=== PATIENT | female | born 1955 | race American Indian/Alaskan Native ===

== ENCOUNTER 2017-06-21 14:14 | Outpatient (CLI) | payer MEDICAID ==
--- NOTE | 2017-06-21 16:41 | Mammography Report ---
BONE DEXA:06/21/17 14:14:00 CLINICAL: Postmenopausal.History of breast cancer and on aromatase inhibitor. TECHNIQUE: Two site bone DEXA performed on an Hologic scanner. FINDINGS: The average BMD of the lumbar spine L1-L4 is 1.062g/cm squared with a T-score of -0.8 and a Z-score of +0.9. The average BMD of the left hip is 1.159g/cm squared with a T-score of +0.8 and a Z-score of +1.7. IMPRESSION: WHO classification: Normal with average fracture risk based on both spine and left hip measurements. RECOMMENDATION: Clinical correlation and routine screening. DEFINITIONS: BMD = Bone Mineral Density T-score = BMD related to mean peak bone mass of young adult (mean expressed in Standard Deviation) Z-score = Age matched BMD expressed in SD World Health Organization (WHO) Diagnostic Criteria Normal T-score > -1 SD Osteopenia T-score between -1 and -2.4 SD Osteoporosis T-score -2.5 SD or below NOTE: BMD is not the only risk factor for fracture. One should also consider factors such as the patient's age, risk of falling, previous osteoporotic fracture, family history of osteoporotic fractures, current smoker, and low body weight. Z-scores are not calculated if >80 years of age.
--- NOTE | 2017-06-22 13:09 | Mammography Report ---
BILATERAL DIGITAL SCREENING MAMMOGRAM WITH CAD: 06/21/17 14:14:00 CLINICAL: Routine screening.Breast cancer survivor status post right partial mastectomy and radiation therapy in January 2016.. COMPARISON:06/09/16 right mammogram. FINDINGS: The breasts are predominantly fatty with scattered fibroglandular densities in the right breast is less dense than on the prior exam. Stable right outer postsurgical scar with surgical clips. No mass, architectural distortion or suspicious calcifications. IMPRESSION: No mammographic evidence of malignancy. BI-RADS CATEGORY: 2 -- Benign RECOMMENDATION: Routine mammographic screening in one year. COMMENT: Patient follow-up letters are generated via our [employer] application.
== END 2017-06-21 14:15 | disposition home or self-care (01) ==
LOC: SPVWC 14:14
PROVIDERS: ATTEND Internal Medicine Hematology & Oncology
DX: Z12.31 Encounter for screening mammogram for malignant neoplasm of breast (principal); M67.431 Ganglion, right wrist; Z79.899 Other long term (current) drug therapy; Z79.811 Long term (current) use of aromatase inhibitors; Z90.11 Acquired absence of right breast and nipple; Z85.3 Personal history of malignant neoplasm of breast; Z78.0 Asymptomatic menopausal state
CPT/HCPCS: 77080; G0202; 77067

== ENCOUNTER 2018-06-26 13:55 | Outpatient (CLI) | payer MEDICAID ==
--- NOTE | 2018-06-27 13:32 | Mammography Report ---
BILATERAL DIGITAL SCREENING MAMMOGRAM WITH CAD: 06/26/18 13:55:00 CLINICAL: Routine screening.Breast cancer survivor status post right partial mastectomy and radiation therapy. COMPARISON:06/21/17 FINDINGS: There are bilateral scattered fibroglandular densities. The right breast is smaller than the left with stable upper outer postsurgical scar with surgical clips. Stable mild skin thickening of the right breast. No mass, architectural distortion or suspicious calcifications. IMPRESSION: No mammographic evidence of malignancy. BI-RADS CATEGORY: 2 -- Benign RECOMMENDATION: Routine mammographic screening in one year. COMMENT: Patient follow-up letters are generated via our [employer] application.
== END 2018-06-26 13:56 | disposition home or self-care (01) ==
LOC: SPVWC 13:55
PROVIDERS: ATTEND Internal Medicine Hematology & Oncology
DX: Z12.31 Encounter for screening mammogram for malignant neoplasm of breast (principal)
CPT/HCPCS: 77067

== ENCOUNTER 2018-07-01 10:21 | Emergency (ER) | payer MEDICAID ==
[2018-07-01 10:44] VITALS: BP 153/74
[2018-07-01 11:30] LABS: Bilirubin,Urine NEG (Negative); Blood,Urine NEG (Negative); Color,Urine Yellow (Yellow); Mucus,Urine FEW /HPF; Protein,Urine <15 mg/dL mg/dL (Negative)
--- NOTE | 2018-07-01 11:55 | Emergency Department Report ---
ED General Adult HPI - General Chief complaint: Urogenital-Female Stated complaint: POSS UTI Time Seen by Provider: 07/01/18 11:27 Source: patient Mode of arrival: Ambulatory Limitations: No Limitations - History of Present Illness Initial comments: Patient is a 63-year-old female with past medical history hypertension who is complaining of 2 weeks of urinary frequency. Patient states there is no dysuria or abnormal vaginal bleeding she states that she just hard time "" holding her urine". Patient also states that she has had some change in her diet and her blood pressure medicines haven't been changed recently and her blood pressure is elevated. Patient's Norvasc dose was dropped to 5 mg from 10 mg. This occurred also about 2 weeks ago and patient states that she says some lower extremity edema. Patient denies any shortness of breath chest pain fevers chills nausea vomiting at this time. - Related Data Previous Rx's Medication Instructions Recorded Last Taken Type Doxycycline [Vibramycin CAP] 100 mg PO Q12HR #14 capsule 07/01/18 Unknown Rx Phenazopyridine [Pyridium] 100 mg PO TID 2 Days tab 07/01/18 Unknown Rx hydroCHLOROthiazide 12.5 mg PO BID #30 tablet 07/01/18 Unknown Rx [Hydrochlorothiazide] Allergies Allergy/AdvReac Type Severity Reaction Status Date / Time aspirin AdvReac Nausea Verified 07/01/18 10:44 ibuprofen AdvReac Nausea Verified 07/01/18 10:44 ED Review of Systems ROS: Stated complaint: POSS UTI Other details as noted in HPI Comment: All other systems reviewed and negative ED Past Medical Hx - Past Medical History Previous Medical History?: Yes Hx Hypertension: Yes Hx of Cancer: Yes Additional medical history: Breast CA - Surgical History Past Surgical History?: Yes Additional Surgical History: Lumpectomy - Social History Smoking Status: Never Smoker Substance Use Type: None - Medications Home Medications: Home Medications Medication Instructions Recorded Confirmed Last Taken Type Doxycycline [Vibramycin CAP] 100 mg PO Q12HR #14 capsule 07/01/18 Unknown Rx Phenazopyridine [Pyridium] 100 mg PO TID 2 Days tab 07/01/18 Unknown Rx hydroCHLOROthiazide 12.5 mg PO BID #30 tablet 07/01/18 Unknown Rx [Hydrochlorothiazide] ED Physical Exam - General Limitations: No Limitations General appearance: alert, in no apparent distress - Head Head exam: Present: atraumatic, normocephalic - Eye Eye exam: Present: normal appearance - ENT ENT exam: Present: mucous membranes moist - Neck Neck exam: Present: normal inspection - Respiratory Respiratory exam: Present: normal lung sounds bilaterally. Absent: respiratory distress, wheezes, rales, rhonchi - Cardiovascular Cardiovascular Exam: Present: regular rate, normal rhythm, systolic murmur (2/6) . Absent: diastolic murmur, rubs, gallop - GI/Abdominal GI/Abdominal exam: Present: soft, normal bowel sounds. Absent: distended, tenderness, guarding, rebound - Extremities Exam Extremities exam: Present: normal inspection, other (1+ pedal edema) - Back Exam Back exam: Present: normal inspection - Neurological Exam Neurological exam: Present: alert, oriented X3 - Psychiatric Psychiatric exam: Present: normal affect, normal mood - Skin Skin exam: Present: warm, dry, intact, normal color. Absent: rash ED Course Vital Signs 07/01/18 10:41 Temperature 98.4 F Pulse Rate 60 Respiratory 16 Rate Blood Pressure 153/74 O2 Sat by Pulse 97 Oximetry ED Medical Decision Making - Lab Data Labs 07/01/18 11:05 Urine Color Yellow Urine Turbidity Clear Urine pH 6.0 Ur Specific [place] 1.015 Urine Protein <15 mg/dl Urine Glucose (UA) Neg Urine Ketones Neg Urine Blood Neg Urine Nitrite Neg Urine Bilirubin Neg Urine Urobilinogen 2.0 Ur Leukocyte Esterase Neg Urine WBC (Auto) 1.0 Urine RBC (Auto) 1.0 Urine Mucus Few - Medical Decision Making Patient does not have a urinary tract infection glucose is normal ketones normal in her urine. Patient could still have interstitial cystitis and urine cultures been sent the patient be started on doxycycline. Patient does have a blood pressure 153/74 which patient states is abnormal for her. Patient does have some mild fluid retention. Educated patient on a low-sodium diet. Patient also be started on hydrochlorothiazide to help with her blood pressure and fluid retention. Patient be discharged home to follow up with her primary care. Critical care attestation.: If time is entered above; I have spent that time in minutes in the direct care of this critically ill patient, excluding procedure time. ED Disposition Clinical Impression: Dependent edema, Hypertensive urgency, Interstitial cystitis Disposition: DC- TO HOME OR SELFCARE Is pt being admited?: No Does the pt Need Aspirin: No Condition: Stable Instructions: Hypertension (ED) Additional Instructions: Please follow-up with your primary care physician regarding her blood pressure Time of Disposition: 11:57
== END 2018-07-01 12:03 | disposition home or self-care (01) ==
LOC: ED 10:21
DX: N30.10 Interstitial cystitis (chronic) without hematuria (principal); R60.9 Edema, unspecified; I16.0 Hypertensive urgency; I10 Essential (primary) hypertension; Z90.89 Acquired absence of other organs; Z85.3 Personal history of malignant neoplasm of breast; Z88.6 Allergy status to analgesic agent
CPT/HCPCS: 81001; 99283

== ENCOUNTER 2019-07-02 10:01 | Outpatient (CLI) | payer MEDICAID ==
--- NOTE | 2019-07-03 09:09 | Mammography Report ---
BILATERAL DIGITAL SCREENING MAMMOGRAM WITH CAD INDICATION: Routine screening mammography. Breast cancer survivor status post right partial mastectom y and radiation therapy. TECHNIQUE: Digital bilateral 2D mammography was obtained in the craniocaudal and mediolateral obliq ue projections. This examination was interpreted with the benefit of Computer-Aided Detection analysi s. COMPARISON: 06/26/2018 FINDINGS: Breast Density: There are scattered areas of fibroglandular density. No mass, architectural distortion or suspicious calcifications. The right breast is smaller than the left. Stable right outer postsurgical scar with surgical clips. IMPRESSION:No mammographic evidence of malignancy. BI-RADS Category 2: Benign. No mammographic evidence of malignancy. Recommend routine screening ma mmography in one year. A "normal" or negative report should not discourage follow up or biopsy of a clinically significant f inding. A written summary of these findings will be mailed to the patient. The patient will be entered into a mammography reporting system which will generate a reminder letter for the patient's next appointmen t at the appropriate interval. The [employer] recommends yearly mammograms starting at age 40 and continuing as l sophie as a woman is in good health. Breast MRI is recommended for women with an approximate 20-25% or greater lifetime risk of breast cancer, including women with a strong family history of breast or ova stevie cancer or who have been treated for Hodgkin's disease. Signer Name: Sumit Horowitz MD Signed: 07/03/2019 9:05 AM Workstation Name: [id number]
== END 2019-07-02 10:02 | disposition home or self-care (01) ==
LOC: SPVWC 10:01
PROVIDERS: ATTEND Internal Medicine Hematology & Oncology
DX: Z12.31 Encounter for screening mammogram for malignant neoplasm of breast (principal); I10 Essential (primary) hypertension
CPT/HCPCS: 77067

== ENCOUNTER 2019-12-18 13:16 | Outpatient (CLI) | payer MEDICAID ==
--- NOTE | 2019-12-18 15:54 | Mammography Report ---
BONE DEXA CLINICAL: Postmenopausal. COMPARISON: 06/21/2017 TECHNIQUE: 2 site bone DEXA performed on an Hologic scanner. FINDINGS: The average BMD of the lumbar spine L1-L4 is 1.107g/cm squared with a T score of -0.4 and a Z score o f +1.5. This compares to 1.062g/cm squared on the last exam and represents a +4.2 % change from the p revious baseline. The average BMD of the left hip is 1.105 g/cm squared with a T score of +0.5and a Z score of +1.4. Th is compares to 1.159 g/cm squared on the last exam and represents a -4.7 % change from the previous b aseline. IMPRESSION: 1. WHO classification: Normal with average fracture risk based on spine measurements. 2. WHO classification Normal with average fracture risk based on left hip measurements. 3. A moderate improvement in spine BMD and a moderate decline in left hip BMD compared to the previou s exam. RECOMMENDATION: Clinical correlation and routine screening. Definitions: BMD equal bone mineral density T score = BMD related to peak bone mass of young adult ([place] expressed an standard deviation) Z score = age-matched BMD expressed in SD World health organization (WHO) diagnostic criteria Normal T score greater than equal to 1 standard deviation Osteopenia T score between -1 and -2.4 standard deviation Osteoporosis T score -2.5 standard deviation or below. Note: BMD is not the only risk factor for fracture; also consider factors such as the patient's age, risk of falling, previous osteoporotic fracture, family history of osteoporotic fractures, current sm oker and low body weight. Z scores are not calculated if greater than 80 years of age. Signer Name: Sumit Horowitz MD Signed: 12/18/2019 3:50 PM Workstation Name: [id number]
== END 2019-12-18 13:17 | disposition home or self-care (01) ==
LOC: SPVWC 13:16
PROVIDERS: ATTEND Internal Medicine Hematology & Oncology
DX: C50.411 Malignant neoplasm of upper-outer quadrant of right female breast (principal); M67.431 Ganglion, right wrist
CPT/HCPCS: 77080

== ENCOUNTER 2020-07-14 11:25 | Outpatient (CLI) | payer MEDICARE ==
--- NOTE | 2020-07-14 14:59 | Mammography Report ---
DIGITAL SCREENING MAMMOGRAM WITH CAD, 07/14/2020 INDICATION: Routine screening mammography. Personal history of right breast cancer treated with lumpe ctomy and radiation. TECHNIQUE: Digital bilateral 2D mammography was obtained in the craniocaudal and mediolateral obliq ue projections. This examination was interpreted with the benefit of Computer-Aided Detection analysi s. COMPARISON: 07/02/2019, 06/26/2018, 06/21/2017 FINDINGS: Breast Density: There are scattered areas of fibroglandular density. There is no evidence of dominant mass, suspicious calcifications or architectural distortion in eithe r breast. Postsurgical changes are again noted in the right breast. IMPRESSION: Follow up recommendation: Routine yearly BI-RADS Category 2: Benign. A "normal" or negative report should not discourage follow up or biopsy of a clinically significant f inding. A written summary of these findings will be mailed to the patient. The patient will be entered into a mammography reporting system which will generate a reminder letter for the patient's next appointmen t at the appropriate interval. The [employer] recommends yearly mammograms starting at age 40 and continuing as l sophie as a woman is in good health. Breast MRI is recommended for women with an approximate 20-25% or greater lifetime risk of breast cancer, including women with a strong family history of breast or ova stevie cancer or who have been treated for Hodgkin's disease. Signer Name: Najma Boogie MD Signed: 07/14/2020 2:54 PM Workstation Name: [id number]
== END 2020-07-14 11:26 | disposition home or self-care (01) ==
LOC: SPVWC 11:25
PROVIDERS: ATTEND Internal Medicine Hematology & Oncology
DX: Z12.31 Encounter for screening mammogram for malignant neoplasm of breast (principal)
CPT/HCPCS: 77067

== ENCOUNTER 2021-07-15 08:50 | Outpatient (CLI) | payer MEDICARE ==
--- NOTE | 2021-07-15 10:55 | Mammography Report ---
DIGITAL SCREENING MAMMOGRAM WITH CAD, 07/15/2021 CLINICAL INFORMATION / INDICATION: Routine screening mammography. TECHNIQUE: Digital bilateral 2D mammography was obtained in the craniocaudal and mediolateral obliqu e projections. This examination was interpreted with the benefit of Computer-Aided Detection analysis . COMPARISON: Prior mammograms 07/14/2020 and 07/02/2019 FINDINGS: Breast Density: There are scattered areas of fibroglandular density. No dominant mass, suspicious calcifications, or architectural distortion in either breast. There is stable benign postsurgical change seen in the right breast. There has been no significant ch alvaro compared with the prior examinations. IMPRESSION: No mammographic evidence of malignancy. Follow up recommendation: Routine yearly BI-RADS Category 2: Benign. A "normal" or negative report should not discourage follow up or biopsy of a clinically significant f inding. A written summary of these findings will be mailed to the patient. The patient will be entered into a mammography reporting system which will generate a reminder letter for the patient's next appointmen t at the appropriate interval. The [employer] recommends yearly mammograms starting at age 40 and continuing as l sophie as a woman is in good health. Breast MRI is recommended for women with an approximate 20-25% or greater lifetime risk of breast cancer, including women with a strong family history of breast or ova stevie cancer or who have been treated for Hodgkin's disease. Signer Name: Mireya Blanchard MD Signed: 07/15/2021 10:50 AM Workstation Name: [id number]
== END 2021-07-15 08:51 | disposition home or self-care (01) ==
LOC: SPVWC 08:50
PROVIDERS: ATTEND Internal Medicine Hematology & Oncology
DX: Z12.31 Encounter for screening mammogram for malignant neoplasm of breast (principal)
CPT/HCPCS: 77067

== ENCOUNTER 2022-07-13 12:44 | Outpatient (CLI) | payer MEDICARE ==
--- NOTE | 2022-07-13 13:59 | Mammography Report ---
DIGITAL DIAGNOSTIC MAMMOGRAM CONVENTIONAL, 07/13/2022 CLINICAL INFORMATION / INDICATION: Left breast pain since reduction surgery January 2022 TECHNIQUE: Digital bilateral mammographic imaging was performed. COMPARISON: Comparison is with prior exams dated back to 2018. FINDINGS: Breast Density: There are scattered areas of fibroglandular density. Stable postlumpectomy changes are noted in the right breast without evidence of recurrent or residual disease. Postsurgical distortion is now seen in the left breast secondary to interval left breast re duction. IMPRESSION: No mammographic evidence of malignancy. Follow up recommendation: Routine yearly mammography BI-RADS Category 2: Benign. A "normal" or negative report should not discourage follow up or biopsy of a clinically significant f inding. A written summary of these findings will be mailed to the patient. The patient will be entered into a mammography reporting system which will generate a reminder letter for the patient's next appointmen t at the appropriate interval. According to the [employer], yearly mammograms are recommended starting at age 40 and continuing as long as a woman is in good health. Breast MRI is recommended for women with an aj roximately 20-25% or greater lifetime risk of breast cancer, including women with a strong family his tory of breast or ovarian cancer and women who have been treated for Hodgkin's disease. Signer Name: Lu Finnegan MD, Ph.D Signed: 07/13/2022 1:54 PM Workstation Name: [id number]
--- NOTE | 2022-07-13 14:54 | Mammography Report ---
DEXA BONE DENSITY SCAN INDICATION / CLINICAL INFORMATION: SCREENING FOR OSTEOPOROSIS [id number]. 67 years Female COMPARISON: 12/18/2019 LUMBAR SPINE, L1-L4: - Bone mineral density (BMD) = 1.131 g/cm2. - T-score = -0.2 - Change (%) since most recent prior (if available): 2.2% increase LEFT HIP, NECK : - Bone mineral density (BMD) = 0.934 g/cm2. - T-score = -0.1 - Change (%) since most recent prior (if available): 1.7% decrease IMPRESSION: 1. WHO Classification: Normal bone density. Fracture Risk: Not Increased. Note: 10-Year Fracture Risk (FRAX) not reported. This DEXA unit lacks FRAX functionality. BMD Reporting Guidelines (ISCD, 2015) BMD Reporting in Postmenopausal Women and in Men Age 50 and Older - T-scores are preferred. - The WHO densitometric classification is applicable. BMD Reporting in Females Prior to Menopause and in Males Younger Than Age 50 - Z-scores, not T-scores, are preferred. This is particularly important in children. - A Z-score of -2.0 or lower is defined as below the expected range for age, and a Z-score above -2.0 is within the expected range for age. - Osteoporosis cannot be diagnosed in men under age 50 on the basis of BMD alone. - The WHO diagnostic criteria may be applied to women in the menopausal transition. http://www.iscd.org/official-positions/7900-kaxj-jkigynhu-positions-adult/ Signer Name: Tad Rodas MD Signed: 07/13/2022 2:50 PM Workstation Name: [id number]
== END 2022-07-13 12:45 | disposition home or self-care (01) ==
LOC: SPVWC 12:44
PROVIDERS: ATTEND Internal Medicine
DX: Z13.820 Encounter for screening for osteoporosis (principal); N64.4 Mastodynia; N95.9 Unspecified menopausal and perimenopausal disorder; Z85.3 Personal history of malignant neoplasm of breast
CPT/HCPCS: 77066; 77080